=== PATIENT | female | born 1975 | race African-American/Black ===

== ENCOUNTER 2022-04-02 13:05 | Emergency (ER) | payer SELFPAY ==
[~2022-04-02] VITALS: Ht 162.6 cm; Wt 70.3 kg
[2022-04-02] MEDS ORDERED: HYDROCODONE/APAP 5-325MG TABLET PO ONE (13:30)
--- NOTE | 2022-04-02 13:32 | NUR ---
[email or web address], medical screening exam in progress
[2022-04-02] MEDS ORDERED: GABA-532 PO (13:34)
[2022-04-02] MEDS ORDERED: [UNRECOGNIZED DRUG - CODE] PO (13:34)
[2022-04-02] MEDS ORDERED: HYDROCODONE/APAP 5-325MG TABLET ONE (13:37)
[2022-04-02 13:48] LABS: MEAN CORPUSCULAR HEMOGLOBIN 27.5 uug (24.7-32.8); MEAN CORPUSCULAR VOLUME 84.7 fL (75.5-95.3); PLATELET COUNT (AUTO) 273 K/uL (179-408)
[2022-04-02 13:55] LABS: CARBON DIOXIDE 26 mmol/L (21-32); CHLORIDE 108 mmol/L (98-107); CREATININE 0.9 mg/dL (0.6-1.3); GLUCOSE 93 mg/dL (74-106); UREA NITROGEN, BLOOD 13 mg/dL (7-18)
[2022-04-02 14:04] LABS: ALKALINE PHOSPHATASE 43 U/L (50-136); BILIRUBIN,TOTAL 0.2 mg/dL (0.2-1.0); TOTAL PROTEIN, SERUM 6.8 g/dL (6.4-8.2)
[2022-04-02 14:22] LABS: ALANINE AMINOTRANSFERASE 12 U/L (14-59); ASPARTATE AMINOTRANSFERASE 10 U/L (15-37); BILIRUBIN,DIRECT < 0.1 mg/dL (0.0-0.2)
[2022-04-02 14:35] LABS: *BILIRUBIN,URIN NEGATIVE (NEGATIVE); *BLOOD, URINE 2+ (NEGATIVE); *COLOR,URINE YELLOW (YELLOW); *KETONES,URINE NEGATIVE (NEGATIVE); *UROBILINOGEN,URINE 0.2 E.U./dl (NORMAL); LEUKOCYTE ESTERASE ,URINE NEGATIVE (NEGATIVE); NITRITE, URINE POSITIVE (NEGATIVE); UGLUCOSE NEGATIVE (NEGATIVE)
--- NOTE | 2022-04-02 14:35 | NUR ---
Patient is resting comfortably on gurney. PATIENT IS PAIN FREE AT THIS TIME.
[2022-04-02 14:47] LABS: *AMPHETAMINE, URINE NEGATIVE (NEGATIVE); *CANNABINOID, URINE POSITIVE (NEGATIVE); *COCCAINE, URINE NEGATIVE (NEGATIVE); *OPIATE, URINE NEGATIVE (NEGATIVE); *PHENCYCLIDINE SCREEN,URINE NEGATIVE (NEGATIVE)
[2022-04-02 14:53] LABS: *CLARITY,URINE SLIGHTLY CLOUDY (CLEAR)
[2022-04-02 15:02] LABS: BACTERIA,URINE MODERATE /HPF (NONE SEEN); SQUAMOUS EPITHELIAL CELL,UR FEW /HPF (NONE SEEN); WBC,URINE 0-3 /HPF (0-3)
[2022-04-02 15:02] LABS: *URINE HCG, QUAL NEGATIVE (NEGATIVE)
[2022-04-02] MEDS ORDERED: HYDR-3972 PO (15:09)
[2022-04-02] MEDS ORDERED: BACL10TA PO (15:09)
--- NOTE | 2022-04-02 15:20 | NUR ---
Patient discharged to home in stable condition with brisk steady gait. Written and verbal after care instructions given. Patient verbalized understanding and compliance of instructions. Stressed follow up with primary doctor and gyne doctor or return to ER for worsening s/s.
[2022-04-02 15:23] VITALS: BP 120/71
[2022-04-02] MEDS ORDERED: CEPH500C2 PO (15:38)
== END 2022-04-02 15:20 | disposition home or self-care (01) ==
LOC: ER 13:05
DX: N94.6 Dysmenorrhea, unspecified (principal); D25.9 Leiomyoma of uterus, unspecified; Z88.6 Allergy status to analgesic agent; D64.9 Anemia, unspecified; R82.90 Unspecified abnormal findings in urine
CPT/HCPCS: 36415; 76856; 84703; 85025; 87077; 87086; A4663

== ENCOUNTER 2022-07-20 16:21 | Emergency (ER) | payer SELFPAY ==
[~2022-07-20] VITALS: Ht 162.6 cm; Wt 70.3 kg
[~2022-07-20 16:21] MED LIST: BACL10TA PO; CEPH500C2 PO; GABA-532 PO; HYDR-3972 PO; [UNRECOGNIZED DRUG - CODE] PO
[2022-07-20] MEDS ORDERED: HYDR-4209 PO (18:18)
[2022-07-20] MEDS ORDERED: HYDROCODONE/APAP 5-325MG TABLET PO ONE (18:30)
[2022-07-20] MEDS ORDERED: HYDROCODONE/APAP 5-325MG TABLET ONE (18:32)
--- NOTE | 2022-07-20 18:50 | NUR ---
Patient discharged to home in stable condition. Written and verbal after care instructions given. Patient verbalizes understanding of instructions. Stressed follow up or return to ER for worsening s/s.
[2022-07-24] MEDS ORDERED: HYDR-3972 PO (15:13)
== END 2022-07-20 18:50 | disposition home or self-care (01) ==
LOC: ER 16:21
DX: S92.511A Displaced fracture of proximal phalanx of right lesser toe(s), initial encounter for closed fracture (principal); W22.03XA Walked into furniture, initial encounter; Y92.032 Bedroom in apartment as the place of occurrence of the external cause; F41.9 Anxiety disorder, unspecified
CPT/HCPCS: 73660; A4663

== ENCOUNTER 2022-07-24 14:31 | Emergency (ER) | END 2022-07-24 16:09 | disposition home or self-care (01) | DX: S92.511D Displaced fracture of proximal phalanx of right lesser toe(s), subsequent encounter for fracture with routine healing (principal); X58.XXXD Exposure to other specified factors, subsequent encounter; M79.674 Pain in right toe(s) ==

== ENCOUNTER 2022-07-26 09:21 | Emergency (ER) | payer SELFPAY ==
[~2022-07-26] VITALS: Ht 165.1 cm; Wt 61.2 kg
[~2022-07-26 09:21] MED LIST changes: +HYDR-4209 PO
[2022-07-26] MEDS ORDERED: HYDROCODONE/APAP 5-325MG TABLET PO ONE (09:45)
[2022-07-26] MEDS ORDERED: HYDR-3972 PO (09:56)
[2022-07-26] MEDS ORDERED: HYDROCODONE/APAP 5-325MG TABLET ONE (10:01)
== END 2022-07-26 10:10 | disposition home or self-care (01) ==
LOC: ER 09:21
DX: S92.501D Displaced unspecified fracture of right lesser toe(s), subsequent encounter for fracture with routine healing (principal); X58.XXXD Exposure to other specified factors, subsequent encounter; M79.674 Pain in right toe(s); Z76.0 Encounter for issue of repeat prescription; Z88.6 Allergy status to analgesic agent
CPT/HCPCS: A4663

== ENCOUNTER 2022-07-29 10:09 | Emergency (ER) | payer SELFPAY ==
[~2022-07-29] VITALS: Ht 165.1 cm; Wt 61.2 kg
--- NOTE | 2022-07-29 10:21 | NUR ---
AT BEDSIDE FOR EVALUATION.
[2022-07-29] MEDS ORDERED: HYDROCODONE/APAP 5-325MG TABLET ONE (10:52)
[2022-07-29] MEDS ORDERED: HYDROCODONE/APAP 5-325MG TABLET PO ONE (11:00)
[2022-07-29 11:07] VITALS: BP 141/72
== END 2022-07-29 11:08 | disposition home or self-care (01) ==
LOC: ER 10:09
DX: S92.511K Displaced fracture of proximal phalanx of right lesser toe(s), subsequent encounter for fracture with nonunion (principal); X58.XXXD Exposure to other specified factors, subsequent encounter; M79.674 Pain in right toe(s); V48.9XXA Unspecified car occupant injured in noncollision transport accident in traffic accident, initial encounter; Y92.410 Unspecified street and highway as the place of occurrence of the external cause
CPT/HCPCS: 73630; A4663

== ENCOUNTER 2023-11-06 01:17 | Emergency (ER) | payer MEDICAID ==
[~2023-11-06] VITALS: Ht 162.6 cm; Wt 62.6 kg
[~2023-11-06 01:17] MED LIST changes: +CYCL10TA9 PO; +HYDR-3980 PO; +ONDA4TAB11 PO
[2023-11-06] MEDS ORDERED: OXYCODONE HCL 5 MG TABLET ONE (01:40)
[2023-11-06] MEDS: OXYCODONE HCL 5 MG TABLET PO ONE (01:43)
[2023-11-06 02:09] VITALS: BP 134/72; TEMP 98.6; O2SAT 100
== END 2023-11-06 02:09 | disposition home or self-care (01) ==
LOC: ER 01:21
DX: M54.6 Pain in thoracic spine (principal); M25.50 Pain in unspecified joint; F17.200 Nicotine dependence, unspecified, uncomplicated; Z98.890 Other specified postprocedural states; Z79.899 Other long term (current) drug therapy
CPT/HCPCS: 72072; A4606; A4663

== ENCOUNTER 2024-02-02 08:18 | Emergency (ER) | payer MEDICAID, OTHER ==
[~2024-02-02] VITALS: Ht 162.6 cm; Wt 63.5 kg
[2024-02-02] MEDS ORDERED: CEphaleXIN 500 MG CAPSULE ONE (09:15)
[2024-02-02] MEDS ORDERED: OXYCODONE/APAP 5-325 MG TABLET ONE ×2 (09:15→09:20)
[2024-02-02] MEDS: CEphaleXIN 500 MG CAPSULE PO ONE (09:21)
[2024-02-02] MEDS: OXYCODONE/APAP 5-325 MG TABLET PO ONE (09:22)
[2024-02-02] MEDS: NAPROXEN 500 MG TABLET PO ONE (10:15)
[2024-02-02] MEDS ORDERED: CEPH500C2 PO (12:40)
[2024-02-02] MEDS ORDERED: NAPR-1164 PO (12:40)
[2024-02-02 13:16] VITALS: BP 122/64; TEMP 98.1; O2SAT 98
[2024-02-02] MEDS ORDERED: OXYC-133 PO (20:48)
== END 2024-02-02 13:17 | disposition home or self-care (01) ==
LOC: ER 08:18
DX: S61.211A Laceration without foreign body of left index finger without damage to nail, initial encounter (principal); F17.200 Nicotine dependence, unspecified, uncomplicated; Z98.890 Other specified postprocedural states; Z79.1 Long term (current) use of non-steroidal anti-inflammatories (NSAID); Z79.891 Long term (current) use of opiate analgesic; Z79.899 Other long term (current) drug therapy; X58.XXXA Exposure to other specified factors, initial encounter; Y93.89 Activity, other specified; Y92.89 Other specified places as the place of occurrence of the external cause; Y99.8 Other external cause status
CPT/HCPCS: 73140; A4606; A4663

== ENCOUNTER 2024-10-09 02:49 | Emergency (ER) | payer OTHER ==
[~2024-10-09] VITALS: Ht 162.6 cm; Wt 64.9 kg
[~2024-10-09 02:49] MED LIST changes: +GABA300C PO; +NAPR-1164 PO; +OXYC-133 PO
[2024-10-09] MEDS ORDERED: HYDR-3980 PO (03:58)
[2024-10-09] MEDS: HYDROCODONE/APAP 10-325 MG TABLET PO ONE (04:01)
[2024-10-09 06:53] VITALS: BP 104/62; TEMP 97.7; O2SAT 99
== END 2024-10-09 06:54 | disposition home or self-care (01) ==
LOC: ER 02:55
DX: M79.671 Pain in right foot (principal); F17.210 Nicotine dependence, cigarettes, uncomplicated; Z79.899 Other long term (current) drug therapy; Z88.6 Allergy status to analgesic agent; W22.03XA Walked into furniture, initial encounter; Y93.89 Activity, other specified; Y92.89 Other specified places as the place of occurrence of the external cause; Y99.8 Other external cause status
CPT/HCPCS: 73620; A4606; A4663

== ENCOUNTER 2024-10-22 22:26 | Emergency (ER) | payer OTHER ==
[~2024-10-22] VITALS: Ht 162.6 cm; Wt 64.9 kg
[2024-10-23] MEDS: HYDROCODONE/APAP 5-325MG TABLET PO ONE (01:57)
[2024-10-23 02:12] VITALS: BP 130/77; TEMP 97.8; O2SAT 100
== END 2024-10-23 02:14 | disposition home or self-care (01) ==
LOC: ER 22:37
DX: M25.561 Pain in right knee (principal); F17.210 Nicotine dependence, cigarettes, uncomplicated; Z79.899 Other long term (current) drug therapy; Z88.6 Allergy status to analgesic agent
CPT/HCPCS: 73562; A4606; A4663

== ENCOUNTER 2025-06-24 19:17 | Emergency (ER) | payer OTHER ==
[~2025-06-24] VITALS: Ht 162.6 cm; Wt 61.2 kg
[~2025-06-24 19:17] MED LIST changes: +CYCL10TA24 PO; -CYCL10TA9 PO; +ONDA-243 PO; -ONDA4TAB11 PO
[2025-06-24 19:55] VITALS: BP 147/79
[2025-06-24] MEDS ORDERED: ONDANSETRON ODT 4 MG TAB.RAPDIS ONE (20:45)
[2025-06-24] MEDS ORDERED: HYDROMORPHONE 1 MG/1 ML DISP.SYRIN ONE (20:45)
[2025-06-24] MEDS: HYDROMORPHONE 1 MG/1 ML DISP.SYRIN IM ONE (20:48)
[2025-06-24] MEDS: ONDANSETRON ODT 4 MG TAB.RAPDIS SL ONE (20:48)
[2025-06-24 21:36] VITALS: BP 144/80; O2SAT 98
== END 2025-06-24 21:13 | disposition home or self-care (01) ==
LOC: ER 19:23
DX: M25.561 Pain in right knee (principal); F17.210 Nicotine dependence, cigarettes, uncomplicated; I51.9 Heart disease, unspecified; Z79.891 Long term (current) use of opiate analgesic; Z79.899 Other long term (current) drug therapy; Z88.6 Allergy status to analgesic agent
CPT/HCPCS: 29505; 96372; 99283; 99406; J1171; A4606; A4663; Q0162